=== PATIENT | female | born 1950 | race Caucasian/White ===

== ENCOUNTER → 2017-05-30 | Outpatient (CLI) | payer OTHER ==
[~2017-05-30] MED LIST: ACETAMINOPHEN500 MG PO; ASCORBIC ACID500 M3 PO; ASPIR 8181 M1 PO; ATORVASTATIN CA20 MG PO; ATROVENT H200 INHALA IH; B COMPLETE1 EACH PO; BUSPAR15 MG PO; CELEBREX200 MG PO; CLARITIN10 M3 PO; DIAZEPAM5 MG PO; EFFEXOR XR75 MG PO; FLOVENT DISKUS1 DIS1 IH; GABAPENTIN300 MG PO; HYDROCHLOROTHIA50 MG PO; K-DUR20 MEQ PO; LEVOTHYROXINE112 MCG PO; LEVOTHYROXINE125 MCG PO; LISINOPRIL10 MG PO; MELATONIN10 M1 PO; OMEPRAZOLE20 M2 PO; OMEPRAZOLE40 M1 PO; OXYCODONE-ACET1 EACH PO; PHENERGAN-CODE120 ML PO; PREDNISONE10 MG PO; PROAIR HFA8.5 GM IH; SINGULAIR10 MG PO; SPIRIVA RESPIMAT4 GM IH; SYMBICORT60 INHALAT IH; TESSALON200 MG PO; TOPROL XL100 MG PO; TRAZODONE HCL50 MG PO; VENTOLIN HFA18 GM IH; VERAPAMIL HCL80 MG PO; ZITHROMAX Z-PA250 MG PO
== END | disposition home or self-care (01) ==
DX: R13.12 Dysphagia, oropharyngeal phase (principal); G20 Parkinson's disease; Z87.01 Personal history of pneumonia (recurrent); Z87.19 Personal history of other diseases of the digestive system
CPT/HCPCS: 92611 GN; G8996 GN; G8997 GN; G8998 GN